=== PATIENT | female | born 1985 | race Caucasian/White ===

== ENCOUNTER → 2016-10-05 | Outpatient (CLI) | payer BC ==
[~2016-10-05] VITALS: Ht 162.6 cm; Wt 75.0 kg
[~2016-10-05] MED LIST: ADVIL,NUPRIN,M200 MG PO; BAYER CHEWABLE81 MG PO; DICLEGIS DR 101 EACH PO; ENDOCET 5-3251 EACH PO; FOLIC ACID0.8 M1 PO; IBUPROFEN800 MG PO; PRENATAL TABLE1 EAC3 PO; VITRON-C TABLE1 EACH PO
[2016-10-05 07:02] VITALS: BP 139/74
== END | disposition home or self-care (01) ==
LOC: IVINF 06:48
DX: O36.0920 Maternal care for other rhesus isoimmunization, second trimester, not applicable or unspecified (principal); Z3A.28 28 weeks gestation of pregnancy
CPT/HCPCS: 96372; J2790

== ENCOUNTER 2016-12-03 09:17 | Inpatient (IN) | payer BC ==
[2016-12-03] VITALS (7 sets, daily range): BP systolic 104–133; BP diastolic 51–87
[~2016-12-03] VITALS: Ht 162.6 cm; Wt 87.1 kg
[~2016-12-03 09:17] MED LIST changes: +COLACE100 MG PO
[2016-12-03] MEDS ORDERED: IBUPROFEN800 MG PO (13:20)
[2016-12-03] MEDS ORDERED: ENDOCET 5-3251 EACH PO (13:20)
[2016-12-04 03:17] VITALS: BP 109/50
[2016-12-04 06:57] LABS: EOSINOPHIL (%) 0.6 % (0-5); EOSINOPHIL COUNT 0.1 K/uL (0-0.3); HEMATOCRIT 26.1 % (36.0-46.0); IMMATURE GRANULOCYTE (%) 0.7 % (0.0-0.7); IMMATURE GRANULOCYTE COUNT 0.1 K/uL; INSTRUMENT ABS NEUTROPHIL CT 11.2 K/uL; LYMPHOCYTE COUNT 2.2 K/uL (1.0-2.8); MCH 30.2 PG (29.0-34.0); MCHC 34.5 G/DL (30.0-36.0); MCV 87.6 FL (83-99); MEAN PLAT.VOLUME 12.4 uM^3 (9.5-12.4); MONOCYTE COUNT 1.3 K/uL (0-0.8); NEUTROPHIL (%) 74.9 % (45-76); NEUTROPHIL COUNT 11.2 K/uL (1.8-6.4); PLATELET COUNT 119 K/uL (156-360); RBC DIS.WIDTH-CV 14.3 % (11.8-14.6); RBC DIS.WIDTH-SD 45.1 % (39-53)
[2016-12-04 07:06] LABS: RED BLOOD COUNT 2.98 M/uL (3.80-5.20); WHITE BLOOD COUNT 14.9 K/uL (4.1-10.2)
[2016-12-04 07:33] VITALS: BP 110/56
[2016-12-04 11:12] VITALS: BP 117/58
[2016-12-04 15:17] VITALS: BP 117/75
[2016-12-04 19:00] VITALS: BP 127/69
[2016-12-04 23:00] VITALS: BP 133/75
[2016-12-05 03:10] VITALS: BP 117/56
[2016-12-05] MEDS ORDERED: PRENATAL TABLE1 EAC3 PO (17:54)
[2016-12-05] MEDS ORDERED: LABETALOL HCL200 MG PO (17:54)
[2016-12-05 22:07] VITALS: BP 125/79
[2016-12-06 07:36] VITALS: BP 123/73
[2016-12-06 16:43] VITALS: BP 137/88
[2016-12-06 23:01] VITALS: BP 132/73
[2016-12-07 07:40] VITALS: BP 137/82
[2016-12-07 14:44] VITALS: BP 156/93
== END 2016-12-07 23:45 | disposition home or self-care (01) | DRG 765 ==
LOC: 2SOUTH 09:17 → 2WEST 09:37 → 2SOUTH 15:20 → 2WEST 12-07 23:45
PROVIDERS: Obstetrics & Gynecology
PROC: 10D00Z1 Extraction of Products of Conception, Low, Open Approach (ICD-10-PCS; principal; 2016-12-03)
DX: O32.8XX1 Maternal care for other malpresentation of fetus, fetus 1 (principal); O32.8XX2 Maternal care for other malpresentation of fetus, fetus 2; O30.043 Twin pregnancy, dichorionic/diamniotic, third trimester; Z37.2 Twins, both liveborn; O40.3XX2 Polyhydramnios, third trimester, fetus 2; O99.413 Diseases of the circulatory system complicating pregnancy, third trimester; I49.3 Ventricular premature depolarization; O26.893 Other specified pregnancy related conditions, third trimester; O99.02 Anemia complicating childbirth; D50.9 Iron deficiency anemia, unspecified; Z3A.37 37 weeks gestation of pregnancy; Z67.11 Type A blood, Rh negative
CPT/HCPCS: 36415; 83030; 85025; 86870; 86900; 86901; 86905; 86920; 86999; 88307; 93005; J0690; J1100; J2274; J2405; J2790; J7120